=== PATIENT | male | born 1995 | race Two or more races ===

== ENCOUNTER 2018-12-19 16:24 | Emergency (ER) | payer OTHER ==
[~2018-12-19] VITALS: Ht 172.7 cm; Wt 68.0 kg
[2018-12-19 16:40] VITALS: BP 121/76
--- NOTE | 2018-12-19 16:40 | NUR ---
ED Nurse Note: PT BROUGHT IN BY AMBULANCE FOR MEDICAL CLEARANCE. PT C/O BILATERAL EAR PAIN. DENIES ANY EAR DISCHARGES. PT IS UNDER CUSTODY.
--- NOTE | 2018-12-19 17:20 | Emergency Room Report ---
History of Present Illness General Chief Complaint: Medical Clearance Source: EMS Present Illness HPI 23-year-old male presents to the emergency department complaining of 5 out of 10 severity bilateral ear pain with acute onset today in addition to feeling short of breath when he was at the police station. Patient is here for medical clearance for incarceration. Patient denies having shortness of breath at this time denies chest pain, cough, wheezing, dizziness or headache. Patient denies any visual changes, recent head injury or history of cardiac problems. Patient denies discharge from the ear and he denies changes in his hearing. Patient denies ringing of the ears, nasal congestion or rhinorrhea. He denies abdominal pain or tenderness, open wounds or bleeding, neck or back pain. Allergies: Coded Allergies: No Known Allergies (Unverified , 12/19/18) Patient History Past Medical History: see triage record Past Surgical History: none Pertinent Family History: none Reviewed Nursing Documentation: PMH: Agreed; PSxH: Agreed Nursing Documentation-PMH Past Medical History: No Stated History Review of Systems All Other Systems: negative except mentioned in HPI Physical Exam Vital Signs Date Time Temp Pulse Resp B/P (MAP) Pulse Ox O2 Delivery O2 Flow Rate FiO2 12/19/18 16:37 98.2 86 16 121/76 (91) 98 Room Air Sp02 EP Interpretation: reviewed, normal General Appearance: no apparent distress, alert, GCS 15, non-toxic Head: normocephalic, atraumatic Eyes: bilateral eye normal inspection, bilateral eye PERRL ENT: hearing grossly normal, normal pharynx, normal voice, TMs + canals normal , uvula midline, moist mucus membranes Neck: full range of motion, no bony tend, no carotid bruits Respiratory: chest non-tender, lungs clear, normal breath sounds, speaking full sentences Cardiovascular #1: regular rate, rhythm Gastrointestinal: normal bowel sounds, non tender, soft Rectal: deferred Musculoskeletal: back normal, gait/station normal, normal range of motion, non- tender Neurologic: alert, oriented x3, responsive, motor strength/tone normal, sensory intact, speech normal, grossly normal Psychiatric: judgement/insight normal Skin: normal color, normal inspection Lymphatic: no adenopathy Medical Decision Making PA Attestation Dr. Vickers Is my supervising Physician whom patient management has been discussed with. Diagnostic Impression: Primary Impression: Medical clearance for incarceration ER Course 23-year-old male presents to the emergency department complaining of 5 out of 10 severity bilateral ear pain with acute onset today in addition to feeling short of breath when he was at the police station. Patient is here for medical clearance for incarceration. Patient denies having shortness of breath at this time denies chest pain, cough, wheezing, dizziness or headache. Patient denies any visual changes, recent head injury or history of cardiac problems. Patient denies discharge from the ear and he denies changes in his hearing. Patient denies ringing of the ears, nasal congestion or rhinorrhea. He denies abdominal pain or tenderness, open wounds or bleeding, neck or back pain. Ddx considered but are not limited to asthma, PNA, OM/OE Head Trauma, NV, ACS, SI/HI, URI, SAH, Fractures, Dislocations, Tazer barbs, Abrasions. Vital signs: are WNL, pt. is afebrile H&PE are most consistent with: normal limited physical examination. ORDERS: none required at this time, the diagnosis is clinical ED INTERVENTIONS: None required at this time. DISCHARGE: At this time pt. is stable for d/c to law enforcement. Will provide printed patient care instructions, and any necessary prescriptions. Care plan and follow up instructions have been discussed with the patient prior to discharge. Last Vital Signs Date Time Temp Pulse Resp B/P (MAP) Pulse Ox O2 Delivery O2 Flow Rate FiO2 12/19/18 16:40 98.2 78 16 121/76 98 Room Air Disposition: D/C TO LAW ENFORCEMENT IN CUST Condition: Stable Scripts No Active Prescriptions or Reported Meds Referrals: NOT CHOSEN IPA/MD,REFERRING (PCP) Departure Forms: [facility] Clearance Patient Instructions: Medical Screening Exam Additional Instructions: ~ ~ An emergent medical condition has not been identified based on this patients presentation, exam and any necessary testing/imaging. The patient is determined to be stable for outpatient follow-up and management of symptoms by a primary care provider. Take any previously prescribed medications as directed. Follow up with a Primary Care Provider in 3-5 days, even if your symptoms have resolved. Return sooner to ED if new symptoms occur, or current symptoms become worse. - Please note that this Emergency Department Report was dictated using [employer] technology software, occasionally this can lead to erroneous entry secondary to interpretation by the dictation equipment. Meena Salazar Dec 19, 2018 17:20
[2018-12-19 17:31] VITALS: BP 121/76
--- NOTE | 2018-12-19 17:31 | NUR ---
ED Nurse Note: Pt cleared by ERMD for discharge. DC instructions was given and explained to pt and verbalized understanding of teachings. All medical deviecs such as ID band removed. Pt is AAO x4, ambulatory and left with all personal belongings. Accompanied by [employer]. Pt is under custody.
== END 2018-12-19 17:31 ==
LOC: EDBD 16:24 → EMR 17:00
DX: H92.03 Otalgia, bilateral (principal)
CPT/HCPCS: 99282